=== PATIENT | male | born 1965 | race Caucasian/White ===

== ENCOUNTER 2025-06-21 06:35 | Outpatient (CLI) | payer OTHER ==
[2025-06-21 07:34] LABS: URINE APPEARANCE Clear; URINE BILIRRUBIN Negative (NEGATIVE); URINE BLOOD Negative; URINE COLOR Yellow; URINE GLUCOSE Negative (NEGATIVE); URINE KETONE Negative (NEGATIVE); URINE LEUKOCYTE Negative; URINE NITRATE Negative; URINE PROTEIN Negative (NEGATIVE); URINE UROBILINOGEN 0.2 E.U./dl
[2025-06-21 07:36] LABS: BASO % 0.5 % (0.1-1.2); EOS # 0.30 (0.04-0.54); EOS % 3.9 % (0.7-7.0); LYMPH # 2.15 (1.18-3.74); LYMPH % 27.8 % (19.3-53.1); MEAN PLATELET VOLUME 10.10 fl (9.4-12.4); MONO # 0.79 (0.24-0.82); MONO % 10.2 % (4.7-12.5); NEUT # 4.43 (1.56-6.13); NEUT % 57.3 % (34.0-71.1); RED CELL DISTRIBUTION WIDTH 13.9 % (11.6-14.4)
[2025-06-21 07:38] LABS: URINE BACTERIA 9.1 uL (0.0-1933); URINE RBC 26.3 uL (0.0-20.8); URINE WBC 1.8 uL (0.0-23.2)
[2025-06-21 07:42] LABS: URINE CAST 0.14 uL (0.0-1.40); URINE EPITHELIAL CELLS 0.6 uL (0.0-38.8)
[2025-06-21 08:23] LABS: ALT/SGPT 30.0 U/L (12-78); AST/SGOT 16.0 U/L (15-37); BILIRUBIN TOTAL 0.94 mg/dL (0.3-1.2); BUN CREA RATIO 22.0 (7.0-25.0); CHOL HDL RATIO 1.7 (0-5.0); CREATININE SERUM 1.35 mg/dL (0.70-1.30); GFR 53.55; GLOBULINA 3.7 G/DL (2.4-3.5); GLUCOSE FASTING 105.0 mg/dL (65-100); HDL 72.0 mg/dl (40-60); LDL 39.0 mg/dl (0-130); OSMOLALITY SERUM 288.0 MOSM/KG (275-295); TSH 2.3 uIU/mL (0.358-3.74); VLDL 10.0 (0-39)
== END 2025-06-21 06:41 | disposition home or self-care (01) ==
LOC: LAB 06:35
DX: D50.8 Other iron deficiency anemias (principal); E11.69 Type 2 diabetes mellitus with other specified complication; E78.2 Mixed hyperlipidemia; I10 Essential (primary) hypertension; N18.2 Chronic kidney disease, stage 2 (mild); E53.8 Deficiency of other specified B group vitamins